=== PATIENT | female | born 1965 | race Caucasian/White ===

== ENCOUNTER 2025-01-30 11:48 | Outpatient (CLI) | payer OTHER, SELFPAY | END 2025-01-30 11:49 | disposition home or self-care (01) | LOC: NFLDREF 02-01 03:14 | PROVIDERS: Visit Provider Physician Assistant Surgical | DX: N30.01 Acute cystitis with hematuria (principal) | CPT/HCPCS: 87086 ==

== ENCOUNTER 2025-02-17 00:36 | Outpatient (CLI) | payer OTHER, SELFPAY | END 2025-02-17 00:37 | disposition home or self-care (01) | LOC: AMB 02-21 11:20 | PROVIDERS: Visit Provider Family Medicine | DX: R07.89 Other chest pain (principal) | CPT/HCPCS: A0425; A0427 ==